=== PATIENT | female | born 1980 | race Hispanic/Latino ===

== ENCOUNTER 2022-06-29 10:01 | Emergency (ER) | payer BC, MEDICAID ==
[~2022-06-29] VITALS: Ht 175.3 cm; Wt 104.3 kg
[2022-06-29 10:09] VITALS: BP 134/76
[2022-06-29] MEDS ORDERED: KETOROLAC 60 MG VIAL (30MG/ML) IM ONE (13:30)
[2022-06-29 14:23] LABS: BASOPHILS % (AUTO) 0.2 % (0.0-5.0); HEMATOCRIT 37.6 % (36-48); LYMPHOCYTES % (AUTO) 4.5 % (21.0-51.0); MEAN CORPUSCULAR HEMOGLOBIN 29.9 pg (27.0-33.0); MEAN CORPUSCULAR HGB CONC 34.3 g/dL (32.0-36.0); MONOCYTES % (AUTO) 3.1 % (3.0-13.0); NEUTROPHILS % (AUTO) 91.9 % (40.0-77.0); PLATELET COUNT (AUTO) 203 K/uL (130-400); RED BLOOD CELL COUNT(AUTO) 4.32 MIL/uL (4.00-5.50); RED CELL DISTRIBUTION WIDTH 12.5 % (11.0-15.5)
[2022-06-29 14:26] LABS: CREATININE 0.7 mg/dL (0.5-1.5); POTASSIUM 4.2 mmol/L (3.5-5.1)
[2022-06-29] MEDS ORDERED: ACETAMINOPHEN 500 MG TABLET PO ONE (15:00)
[2022-06-29] MEDS ORDERED: IOHEXOL-350 50ML VIAL IV ONE (15:24)
[2022-06-29] MEDS ORDERED: IBUP-2070 PO (16:07)
[2022-06-29] MEDS ORDERED: AZIT250T9 PO (16:07)
== END 2022-06-29 16:31 | disposition home or self-care (01) ==
LOC: EDH 10:01
DX: R59.0 Localized enlarged lymph nodes (principal); J03.90 Acute tonsillitis, unspecified; Z88.0 Allergy status to penicillin
CPT/HCPCS: 99284; 70491; 87635; 80048; 85025; 87880; 87804 ×2; 36415; 96372; C9803; J1885; Q9967

== ENCOUNTER 2024-08-13 06:00 | Day surgery (SDC) | payer MEDICAID ==
[2024-08-11 12:42] LABS: BASOPHILS # (AUTO) 0.05 K/uL (0.00-0.20); BASOPHILS % (AUTO) 0.6 % (0.0-5.0); EOSINOPHILS # (AUTO) 0.14 K/uL (0.00-0.70); EOSINOPHILS % (AUTO) 1.7 % (0.0-8.0); HEMATOCRIT 38.6 % (36-48); IMMATURE GRANULOCYTE ABSOLUTE 0.02 K/uL (0-1); LYMPHOCYTES # (AUTO) 2.7 K/uL (1.0-4.8); LYMPHOCYTES % (AUTO) 33.3 % (21.0-51.0); MEAN CORPUSCULAR HEMOGLOBIN 30.3 pg (27.0-33.0); MEAN CORPUSCULAR VOLUME 86.5 fL (79-99); MONOCYTES # (AUTO) 0.4 K/uL (0.1-1.0); MONOCYTES % (AUTO) 4.5 % (3.0-13.0); NEUTROPHILS # (AUTO) 4.9 K/uL (1.8-7.7); NEUTROPHILS % (AUTO) 59.7 % (40.0-77.0); PLATELET COUNT (AUTO) 202 K/uL (130-400); RED BLOOD CELL COUNT(AUTO) 4.46 MIL/uL (4.00-5.50); WHITE BLOOD COUNT (AUTO) 8.2 K/uL (4.8-10.8)
--- NOTE | 2024-08-11 12:43 | EKG ---
[facility] Test Date: 2024-08-11 Test Time: 13:32:31 Pat Name: MATEO CASAS Department: [facility] Room: Gender: F Gluing Machine Operator Electronic: [id number] : [id number] Requested By: KRYSTAL MCDONALD Order Number: [id number] Reading MD: Epifanio Argueta Measurements Intervals [place] Rate: 84 P: 44 SC: 155 QRS: 59 QRSD: 82 T: 26 QT: 358 QTc: 424 Interpretive Statements Sinus rhythm No previous ECG available for comparison Electronically Signed On 08-11-2024 17:10:12 HOOK AND EYE MACHINE OPERATOR by Epifanio Argueta Please click the below link to view image of tracing.
[2024-08-11 12:52] LABS: CREATININE 0.6 mg/dL (0.5-1.0); POTASSIUM 3.9 mmol/L (3.5-5.1)
[2024-08-11 12:59] VITALS: BP 129/64; PULSE 93; RESP 16; TEMP 98.4
[2024-08-13] VITALS (15 sets, daily range): BP systolic 99–127; BP diastolic 47–75; PULSE 60–89; RESP 14–18; TEMP 97.1–97.8
[~2024-08-13] VITALS: Ht 175.3 cm; Wt 113.4 kg
[~2024-08-13 06:00] MED LIST: BUPR450T5 PO; BUSP10TA3 PO
[2024-08-13] MEDS ORDERED: INDOCYANINE GREEN 25 MG VIAL IJ ONE (06:50)
[2024-08-13] MEDS ORDERED: acetaMINOPHEN 100 ML ONE (07:00)
[2024-08-13] MEDS ORDERED: FAMOTIDINE 20MG VIAL IV ONE (07:00)
[2024-08-13] MEDS ORDERED: ketaMINE 50MG/ML SYRINGE 50 MG/ML DISP.SYRIN ONE (07:02)
[2024-08-13] MEDS ORDERED: LIDOCAINE PF 100MG/5ML (2%) SYRINGE 5ML ONE (07:07)
[2024-08-13] MEDS ORDERED: proPOFol 10 MG/ML 20ML VIAL IV ONE (07:08)
[2024-08-13] MEDS ORDERED: FENTanyl CITRate PF 50 MCG/1 ML 2ML VIAL ONE (07:08)
[2024-08-13] MEDS ORDERED: rocuRONium bROMide 10MG/1ML 5ML VL ONE ×2 (07:08→08:41)
[2024-08-13] MEDS: CLINDAMYCIN IVPB 900MG/50ML 50 ML IV ONE (07:18)
[2024-08-13] MEDS: LACTATED RINGERS 1000ML 1,000 ML IV ONE (07:18)
[2024-08-13] MEDS ORDERED: BUPIvacaine/PF 0.25% 30ML VIAL IJ ONE (07:25)
[2024-08-13] MEDS: BUPIvacaine/PF 0.25% 30ML VIAL IJ ONE (07:33)
[2024-08-13] MEDS ORDERED: dexaMETHasone SOD PHOSPHATE 10MG/ML 1ML VIAL ONE (08:18)
[2024-08-13] MEDS ORDERED: ondanSETRON 4MG INJ ONE (08:18)
[2024-08-13] MEDS ORDERED: NEOSTIGMINE METHYLSULFATE 1MG/ML IV ONE (08:47)
[2024-08-13] MEDS ORDERED: GLYCOPYRROLATE 0.2 MG/ML 5 ML VIAL ONE (08:47)
--- NOTE | 2024-08-13 09:40 | OP ---
Operative Note: DATE OF PROCEDURE: 08/13/24 SURGEON: KRYSTAL MCDONALD MD CRAWLER CRANE OPERATOR: Nba Mcdonald MD PA-C ANESTHESIA: General and Local ANESTHESIOLOGIST/MANUFACTURING CONTROLLER[place] [facility] [place] PREOPERATIVE DIAGNOSIS: Symptomatic cholelithiasis POSTOPERATIVE DIAGNOSIS: As above SYNOPSIS: Cholecystectomy with IC Green IOC PROCEDURE: Robotic cholecystectomy with IC-Green Intraoperative Cholangiogram ESTIMATED BLOOD LOSS: min, <10cc INDICATIONS: As above DESCRIPTION OF PROCEDURE: After standard preparations a veress needle and optical trocar were used to enter the abdomen. All other instruments placed by direct vision. We retracted the gallbladder cephalad and dissected in the area of the infandibulum. A critical view of safety was achieved identifying a single cystic artery and duct. The ductal system was viewed to the junction of the hepatic and common bile ducts due to the use of IC-Green and firefly visual technology. We used clips to ligate the structures (2 on the stay side). We use scissors to divide and then monopolar cautery to separate the gallbladder from attachments to the GB fossa. The specimen was placed in an endocatch bag and removed from the abdomen. All instrument counts were correct prior to ending the case. KRYSTAL MCDONALD MD Aug 13, 2024 09:40
[2024-08-13] MEDS: ondanSETRON 4MG INJ ONE (09:58)
--- NOTE | 2024-08-13 11:03 | NUR ---
Full and complete discharge instructions given to Patient and Family both verbally and in writing. Explained Surgical procedure precautions and follow up. All questions answered. PIV removed with catheter tip intact. Home with Family W/C to POV.
--- NOTE | 2024-08-13 12:12 | PN ---
GENERAL SURGERY PROGRESS NOTE Date/Time Patient Seen: [ 08/13/24] Problem List: [ ] Interval History: [ POD#0. Pain tolerable w PRN meds. ] Physical Examination: GENERAL: [No acute distress.] ABD: [incisions clean, dry and intact, Dermabond in place] Vital Signs (last 8hr) Date Time Temp Pulse Resp B/P (MAP) Pulse Ox O2 Delivery O2 Flow Rate FiO2 08/13/24 10:55 60 15 120/65 98 Room Air 08/13/24 10:40 97.7 63 15 125/52 97 Room Air 08/13/24 10:30 72 18 104/54 97 Room Air 08/13/24 10:28 21 08/13/24 10:25 65 16 106/55 96 Room Air 08/13/24 10:20 75 14 110/49 97 Room Air 08/13/24 10:15 73 16 104/58 99 Room Air 08/13/24 10:10 60 17 99/47 96 Room Air 08/13/24 10:05 62 16 126/60 97 Room Air 08/13/24 10:00 65 18 116/59 95 Room Air 08/13/24 09:55 62 17 110/59 99 Nonrebreathing Mask 10.0 08/13/24 09:50 64 16 122/65 100 Nonrebreathing Mask 10.0 08/13/24 09:45 73 14 112/61 98 Nonrebreathing Mask 10.0 08/13/24 09:40 72 16 119/63 99 Nonrebreathing Mask 10.0 08/13/24 09:35 97.9 69 16 100/58 98 Nonrebreathing Mask 10.0 08/13/24 06:30 97.2 89 16 127/75 98 Room Air Laboratory: [ ] Hematology Labs: Test 08/11/24 12:30 Range/Units White Blood Count 8.2 4.8-10.8 K/uL Red Blood Count 4.46 4.00-5.50 MIL/uL Hemoglobin 13.5 12.0-16.0 g/dL Hematocrit 38.6 36-48 % Mean Corpuscular Volume 86.5 79-99 fL Mean Corpuscular Hemoglobin 30.3 27.0-33.0 pg Mean Corpuscular Hemoglobin Concent 35.0 32.0-36.0 g/dL Red Cell Distribution Width 12.0 11.0-15.5 % Platelet Count 202 130-400 K/uL Mean Platelet Volume 9.8 7.5-10.5 fL Immature Granulocyte % (Auto) 0.2 0-1 % Neutrophils (%) (Auto) 59.7 40.0-77.0 % Lymphocytes (%) (Auto) 33.3 21.0-51.0 % Monocytes (%) (Auto) 4.5 3.0-13.0 % Eosinophils (%) (Auto) 1.7 0.0-8.0 % Basophils (%) (Auto) 0.6 0.0-5.0 % Neutrophils # (Auto) 4.9 1.8-7.7 K/uL Lymphocytes # (Auto) 2.7 1.0-4.8 K/uL Monocytes # (Auto) 0.4 0.1-1.0 K/uL Eosinophils # (Auto) 0.14 0.00-0.70 K/uL Basophils # (Auto) 0.05 0.00-0.20 K/uL Absolute Immature Granulocyte (auto 0.02 0-1 K/uL Nucleated Red Blood Cells 0.0 0.0-0.19 % Chemistry Labs: Test 08/11/24 12:30 Range/Units Sodium Level 137 136-145 mmol/L Potassium Level 3.9 3.5-5.1 mmol/L Chloride Level 104 101-111 mmol/L Carbon Dioxide Level 25 21-32 mmol/L Blood Urea Nitrogen 13 7-18 mg/dL Creatinine 0.6 0.5-1.0 mg/dL Glomerular Filtration Rate Calc 114 >90 mL/min Random Glucose 107 H 70-105 mg/dL Total Calcium 8.4 L 8.5-10.1 mg/dL Serum Test, Qualitative NEGATIVE NEGATIVE Diagnostics / Radiology: [Copy/Paste Echos/Imaging Report here] Impression and Plan: [ Plan is for d/c home today when pt ambulatory, tolerating PO and pain under control. Discussed w pt and family. ] KRYSTAL MCDONALD MD Aug 13, 2024 12:12
== END 2024-08-13 11:03 | disposition home or self-care (01) ==
LOC: DAH 06:00
PROVIDERS: ATTEND Surgery
DX: K80.10 Calculus of gallbladder with chronic cholecystitis without obstruction (principal); R10.11 Right upper quadrant pain; F41.9 Anxiety disorder, unspecified; F32.9 Major depressive disorder, single episode, unspecified; E66.01 Morbid (severe) obesity due to excess calories; Z96.659 Presence of unspecified artificial knee joint; Z79.899 Other long term (current) drug therapy; Z68.35 Body mass index [BMI] 35.0-35.9, adult
CPT/HCPCS: 80048; 84703; 85025; 86850; 86900; 86901; 36415; 93005; 47563; 88304; A6260; A4663; J7030; A4215 ×2; J7120; J3490 ×6; J3010; J1100; J0665 ×2; J2003; J2704; J2405 ×2; J2710; A4222; A4221; A4216; A4223 ×2; A4600; S2900